=== PATIENT | male | born 1990 | race Caucasian/White ===

== ENCOUNTER 2018-11-08 00:33 | Emergency (ER) | payer OTHER ==
[~2018-11-08] VITALS: Ht 188 cm; Wt 88.6 kg
[2018-11-08 00:39] VITALS: Ht 188 cm; Wt 88.6 kg
[2018-11-08] MEDS ORDERED: SOD CHLORIDE 0.9% 1,000 ML IV STA (00:40)
[2018-11-08] MEDS ORDERED: SOD CHLORIDE 0.9% 100 ML ONE (00:59)
[2018-11-08] MEDS ORDERED: IOHEXOL 300MG/ML 150 ML BTL ONE (00:59)
[2018-11-08 02:10] VITALS: BP 128/81; PULSE 83; RESP 16
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
== END 2018-11-08 02:19 | disposition home or self-care (01) ==
LOC: E/R 00:33
DX: S00.83XA Contusion of other part of head, initial encounter (principal); F10.920 Alcohol use, unspecified with intoxication, uncomplicated; V49.10XA Passenger injured in collision with unspecified motor vehicles in nontraffic accident, initial encounter
CPT/HCPCS: 36415; 70450; 70486; 71260; 72125; 74177; 80048; 80307; 85025; 85610; 85730; 99285; J7030; Q9967